=== PATIENT | male | born 1965 | race Caucasian/White ===

== ENCOUNTER 2021-01-27 17:11 | Emergency (ER) | payer BC, OTHER ==
[2021-01-27 17:30] VITALS: BP 148/87; PULSE 84; RESP 18; TEMP 98.5
[2021-01-27] MEDS ORDERED: LIDOCAINE 1% INJ 10MG/ML (20 ML MDV) SQ ONE (19:47)
[2021-01-27] MEDS ORDERED: SULFAMETH-TMP DS STARTER PACK 2 TAB BTL PO STA (20:04)
--- NOTE | 2021-01-27 20:05 | ED ---
Skin/Abscess/FB HPI - General Chief complaint: Skin/Abscess/Foreign Body Stated complaint: Shoulder abcess Time Seen by Provider: 01/27/21 19:20 Source: patient Mode of arrival: ambulatory Limitations: no limitations - History of Present Illness Initial comments: 55 year-old male patient presents to the emergency department for evaluation of abscess to the right side neck. Patient states that it has been a recurrent problem for the last 20 years. States it started worsening about a week ago. States it is swollen and tender to touch. Has had it drained in the past. Denies any fever or chills. States he was unable to get it to drain at home. Has been applying warm compresses and boil-emily. No recent antibiotics. - Related Data Previous Rx's Medication Instructions Recorded Sulfamethoxazole/Trimethoprim 1 each PO BID #20 tablet 01/27/21 [Bactrim DS 800-160 mg] Allergies Allergy/AdvReac Type Severity Reaction Status Date / Time No Known Allergies Allergy Verified 01/27/21 17:30 Review of Systems ROS Statement: Those systems with pertinent positive or pertinent negative responses have been documented in the HPI. ROS Other: All systems not noted in ROS Statement are negative. Past Medical History Past Medical History: No Reported History History of Any Multi-Drug Resistant Organisms: None Reported Past Surgical History: Unable to Obtain Past Psychological History: No Psychological Hx Reported Smoking Status: Never smoker Past Alcohol Use History: None Reported Past Drug Use History: None Reported General Exam Limitations: no limitations General appearance: alert, in no apparent distress Neck exam: Present: other (There is 3 cm x 3 cm abscess noted to the right posterior neck. No surrounding erythema. Area is tender to touch. Central fluctuance.) Respiratory exam: Present: normal lung sounds bilaterally. Absent: respiratory distress, wheezes, rales, rhonchi, stridor Cardiovascular Exam: Present: regular rate, normal rhythm, normal heart sounds. Absent: systolic murmur, diastolic murmur, rubs, gallop, clicks Neurological exam: Present: alert, oriented X3, CN II-XII intact Psychiatric exam: Present: normal affect, normal mood Skin exam: Present: warm, dry, intact, normal color. Absent: rash Course Vital Signs 01/27/21 17:28 Temperature 98.5 F Pulse Rate 84 Respiratory 18 Rate Blood Pressure 148/87 O2 Sat by Pulse 97 Oximetry Procedures - Incision & Drainage Consent Obtained: written consent Indication: Abscess Site: neck Size (cm): 3 Anesthetic Used: lidocaine 1% Amount (mLs): 3 I&D Cleaning Method: Betadine Scalpel Used: #11 I&D Drainage Obtained: Pus, Blood Culture Obtained?: Yes Complications: pain Patient Tolerated Procedure: well Medical Decision Making - Medical Decision Making 55-year-old male patient presents to the emergency department today for evaluation of abscess to the right posterior neck. Physical examination did reveal fluctuant 3 cm x 3 cm abscess with no surrounding erythema. Incision and drainage was performed. Considerable amount of pus was drained from the area. Patient does report improvement in pain after completion. This was cultured. He is started on Bactrim. Instructed to follow-up the primary care physician for recheck in 1-2 days. Return parameters were discussed in detail. He verbalizes understanding and agrees with this plan. My attending is Dr. Robledo. Disposition Clinical Impression: Abscess Disposition: HOME SELF-CARE Condition: Good Instructions (If sedation given, give patient instructions): Abscess Incision and Drainage (ED) Additional Instructions: Continue applying warm compresses. Take antibiotics as directed. Follow-up through primary care physician for recheck in 1-2 days. Return for any new, worsening, or concerning symptoms. Prescriptions: Sulfamethoxazole/Trimethoprim [Bactrim DS 800-160 mg] 1 each PO BID #20 tablet Is patient prescribed a controlled substance at d/c from ED?: No Referrals: Alex Alamo MD [Primary Care Provider] - 1-2 days Time of Disposition: 20:05
== END 2021-01-27 20:37 | disposition home or self-care (01) ==
LOC: EC 17:11
DX: L02.11 Cutaneous abscess of neck (principal)
CPT/HCPCS: 10060; 87070; 87205; 99283

== ENCOUNTER 2022-08-29 08:25 | Day surgery (SDC) | payer BC ==
[~2022-08-29 08:25] MED LIST: LACTATED RINGERS 1,000 ML IV SCH
[2022-08-29 09:28] VITALS: TEMP 97.6
[2022-08-29] MEDS ORDERED: PROPOFOL 10 MG/ML 20 ML VIAL IV ONE (09:56)
--- NOTE | 2022-08-29 10:04 | P.GSHP ---
History of Present Illness H&P Date: 08/29/22 Chief Complaint: Colon cancer screening, diverticulitis 56-year-old male here for colonoscopy. Patient states he has intermittent attacks of diverticulitis 3 times a year. He says his symptoms resolved with laxative use and not antibiotics. No recent imaging to confirm diverticulitis. No rectal bleeding or melena. No family history of colon cancer. Past Medical History Past Medical History: No Reported History History of Any Multi-Drug Resistant Organisms: None Reported Past Surgical History: No Surgical Hx Reported Past Anesthesia/Blood Transfusion Reactions: Unable to Obtain Past Psychological History: No Psychological Hx Reported Smoking Status: Current every day smoker Past Alcohol Use History: None Reported Additional Past Alcohol Use History / Comment(s): 1ppk day x 42 yrs 6-12 beers once a week usually in one evening Past Drug Use History: None Reported Medications and Allergies Home Medications Medication Instructions Recorded Confirmed Type Krill Oil 1 tab PO DAILY 08/24/22 08/24/22 History L.acidoph,Paracasei, B.lactis 1 tab PO DAILY 08/24/22 08/24/22 History [Probiotic] Multivitamins, Thera [Multivitamin 1 tab PO DAILY 08/24/22 08/24/22 History (formulary)] Vit C/E/Cuperic/Zinc/Lutein 1 tab PO DAILY 08/24/22 08/24/22 History [Preservision Lutein Softgel] Allergies Allergy/AdvReac Type Severity Reaction Status Date / Time No Known Allergies Allergy Verified 08/24/22 13:40 Surgical - Exam Vital Signs Temp Pulse Resp BP Pulse Ox 97.6 F 64 20 148/72 97 08/29/22 09:13 08/29/22 09:13 08/29/22 09:13 08/29/22 09:13 08/29/22 09:13 Physical exam: General: Well-developed, well-nourished HEENT: Normocephalic, sclerae nonicteric Abdomen: Nontender, nondistended Extremities: No edema Neuro: Alert and oriented Assessment and Plan (1) Colon cancer screening Narrative/Plan: Will proceed with colonoscopy at this time Current Visit: Yes Status: Acute Code(s): Z12.11 - ENCOUNTER FOR SCREENING FOR MALIGNANT NEOPLASM OF COLON SNOMED Code(s): 175180305
--- NOTE | 2022-08-29 10:12 | P.PCN ---
Date of Procedure: 08/29/22 Procedure(s) Performed: PREOPERATIVE DIAGNOSIS: Colon cancer screening with history of diverticulitis POSTOPERATIVE DIAGNOSIS: Diverticulosis PROCEDURE: Colonoscopy ANESTHESIA: MAC SURGEON: Percy Birch M.D. SPECIMENS: None ENDOSCOPIC PROCEDURE: The patient was placed on the endoscopy table in the left decubitus position. The Olympus colonoscope was inserted into the anus and passed under direct visualization to the base of the cecum. The appendiceal orifice was visualized. From that point the scope was slowly withdrawn inspecting all surfaces carefully. There were no neoplastic inflammatory or polypoid lesions throughout the cecum, ascending, transverse, descending, sigmoid and rectum. There was left-sided diverticulosis noted with mild inflammatory changes. Digital rectal examination was normal. The patient was taken to the recovery room in stable condition per anesthesia guidelines. RECOMMENDATIONS: Resume diet. Repeat colonoscopy in 10 years.
[2022-08-29 10:36] VITALS: BP 153/84; PULSE 67; RESP 14
== END 2022-08-29 10:53 | disposition home or self-care (01) ==
LOC: ORWHC2ENDO 08:25
PROVIDERS: ATTEND Surgery
DX: K57.30 Diverticulosis of large intestine without perforation or abscess without bleeding (principal); F17.200 Nicotine dependence, unspecified, uncomplicated; Z79.899 Other long term (current) drug therapy
CPT/HCPCS: 45378; J2704

== ENCOUNTER → 2022-09-12 | Outpatient (CLI) | payer BC ==
[2022-09-13 01:44] LABS: Basophils # (A) 0.04 X 10*3/uL (0.00-0.10); Basophils % (A) 0.5 %; Eosinophils # (A) 0.07 X 10*3/uL (0.04-0.35); Eosinophils % (A) 0.9 %; HCT 45.7 % (39.6-50.0); HGB 15.2 g/dL (13.0-17.0); Immature Grans, Automated 0.4 %; Lymphocytes # (A) 1.64 X 10*3/uL (0.90-5.00); MCH 30.6 pg (27.0-32.0); MCHC 33.3 g/dL (32.0-37.0); MCV 92.1 fL (80.0-97.0); Mean Platelet Volume 9.4 fL (9.5-12.2); Monocytes % (A) 8.5 %; NRBC Per 100 WBC 0 /100 WBCS (0.0-0.0); Neutrophils # (A) 5.72 X 10*3/uL (1.80-7.70); Neutrophils % (A) 69.7 %; Platelet Count 264 X 10*3/uL (140-440); RBC 4.96 X 10*6/uL (4.40-5.60); RDW 12.8 % (11.5-14.5)
[2022-09-14 06:00] LABS: African American GFR (CKD) 116.6 (60.0-200.0); Anion Gap 13.5 mmol/L (10.00-18.00); BUN/Creat Ratio 13.5 Ratio (12.00-20.00); Blood Urea Nitrogen 10.8 mg/dL (9.0-27.0); Calcium 9.7 mg/dL (8.7-10.3); Carbon Dioxide 24.5 mmol/L (20.0-27.5); Non-African American GFR(CKD) 100.6 (60.0-200.0); Potassium 4.7 mmol/L (3.5-5.5)
== END | disposition home or self-care (01) ==
LOC: LABPAT 14:15
PROVIDERS: ATTEND Orthopaedic Surgery
DX: Z01.818 Encounter for other preprocedural examination (principal); M16.11 Unilateral primary osteoarthritis, right hip; Z22.322 Carrier or suspected carrier of Methicillin resistant Staphylococcus aureus
CPT/HCPCS: 80048; 85025; 87070; 93005

== ENCOUNTER → 2022-09-18 | Outpatient (CLI) | payer BC ==
[2022-09-19 11:33] LABS: INR 0.91 (0.90-1.11); Prothrombin Time 10.3 sec (9.9-11.9)
== END | disposition home or self-care (01) ==
LOC: LABPAT 15:44
PROVIDERS: ATTEND Orthopaedic Surgery
DX: Z01.812 Encounter for preprocedural laboratory examination (principal); M16.11 Unilateral primary osteoarthritis, right hip; Z22.322 Carrier or suspected carrier of Methicillin resistant Staphylococcus aureus
CPT/HCPCS: 85610

== ENCOUNTER 2022-09-20 05:43 | Day surgery (SDC) | payer BC ==
[2022-09-18 15:59] VITALS: BMI 29.1
--- NOTE | 2022-09-20 02:21 | HP ---
HISTORY AND PHYSICAL DATE OF SURGERY: 09/20/2022 HISTORY OF PRESENT ILLNESS: Venkat Calhoun is a 56-year-old patient seen with progressive right hip pain. We discussed options for treatment. He elected to proceed with right total hip arthroplasty via direct anterior approach. Consent regarding the procedure was obtained. PAST MEDICAL HISTORY: Noncontributory. SURGICAL HISTORY: Noncontributory. DAILY MEDICATIONS: None. ALLERGIES: None reported. SOCIAL HISTORY: Denies tobacco use. PHYSICAL EVALUATION OF RIGHT HIP: Diffuse tenderness, limited range of motion with severe pain. Positive hip impingement sign. Straight-leg raise negative. Distal neurovascular exam intact. RADIOGRAPHS: Right hip radiographs reveal severe osteoarthritic changes. IMPRESSION: Right hip osteoarthritis. PLAN: Direct anterior right total hip arthroplasty. MMODL / IJN: [id number] /
[~2022-09-20 05:43] MED LIST changes: +ACETAMINOPHEN TAB 500 MG TAB PO PRN; -LACTATED RINGERS 1,000 ML IV SCH; +MELOXICAM 7.5 MG TAB PO PRN; +TRANEXAMIC ACID IN NACL,ISO-OS 1,000 MG in SALINE 1 100ML.BAG IVPB PRN
[2022-09-20] MEDS ORDERED: LACTATED RINGERS 1,000 ML IV SCH (06:21)
[2022-09-20] MEDS ORDERED: LIDOCAINE 1% (10MG/ML) FOR IV START INTRADERMA PRN (06:21)
[2022-09-20] MEDS ORDERED: LACTATED RINGERS 1,000 ML IV ONE ×4 (06:30→09:21)
[2022-09-20] MEDS ORDERED: ONDANSETRON 4 MG/2 ML VIAL IVP PRN ×2 (07:00→09:21)
[2022-09-20] MEDS ORDERED: HYDROmorphone 0.5 MG/0.5 ML SYRINGE IVP PRN ×3 (07:00→09:21)
[2022-09-20] MEDS ORDERED: MIDAZOLAM 2 MG/2 ML VIAL IVP ONE (07:01)
[2022-09-20] MEDS ORDERED: ROPIVACAINE 5 MG/ML 30 ML VIAL ONE (07:27)
[2022-09-20] MEDS ORDERED: ROCURONIUM 10 MG/ML (5 ML VIAL) IV ONE (07:27)
[2022-09-20] MEDS ORDERED: SUCCINYLCHOLINE CHLORIDE 200 MG/10 ML VIAL IV ONE (07:27)
[2022-09-20] MEDS ORDERED: HYDROmorphone (PF) 1 MG/ML ONE (07:27)
[2022-09-20] MEDS ORDERED: fentaNYL (PF) 50 MCG/ML 2 ML AMP ONE (07:27)
[2022-09-20] MEDS ORDERED: TRANEXAMIC ACID IN NACL,ISO-OS 1,000 MG/100 ML BAG ONE (07:27)
[2022-09-20] MEDS ORDERED: MIDAZOLAM 2 MG/2 ML VIAL ONE (07:27)
[2022-09-20] MEDS ORDERED: KETAMINE 10 MG/ML 20 ML VIAL ONE (07:27)
[2022-09-20] MEDS ORDERED: DEXAMETHASONE SOD PHOSPHATE 4 MG/ML 1 ML VIAL ONE (07:27)
[2022-09-20] MEDS ORDERED: LIDOCAINE 2% INJ 20 MG/ML (2 ML VIAL) ONE (07:27)
[2022-09-20] MEDS ORDERED: PROPOFOL 10 MG/ML 20 ML VIAL IV ONE (07:27)
[2022-09-20] MEDS ORDERED: ceFAZolin 1,000 MG in SODIUM CHLORIDE 0.9% 1,000 ML IRRIGATION ONE (08:00)
--- NOTE | 2022-09-20 09:11 | XR ---
Intraoperative/procedural fluoroscopic services were provided for total right hip arthroplasty. Hardw are appears intact with appropriate alignment. Total fluoroscopy time is 14 seconds with a total of 5 submitted images to PACS. Please see the operative note for further details.
[2022-09-20] MEDS ORDERED: HYDROmorphone 1 MG/ML 1 ML SYRINGE IVP PRN (09:21)
[2022-09-20] MEDS ORDERED: HYDROcodone/APAP 5-325MG 1 EACH TAB PO PRN (09:21)
[2022-09-20] MEDS ORDERED: HYDROcodone/APAP 7.5-325MG 1 EACH TAB PO PRN (09:21)
[2022-09-20] MEDS ORDERED: NALOXONE 0.4 MG/ML 1 ML VIAL IV PRN (09:21)
--- NOTE | 2022-09-20 09:21 | P.OP ---
Date of Procedure: 09/20/22 Preoperative Diagnosis: Right hip osteoarthritis Postoperative Diagnosis: Right hip osteoarthritis Procedure(s) Performed: Direct anterior right total hip arthroplasty Implants: 1. Depuy Corail 135 standard collar size 13 press-fit femoral stem 2. Depuy pinnacle 54 mm press-fit acetabular shell 3. Depuy pinnacle neutral polyethylene acetabular liner 36 mm ID 54 mm OD 4. Biolox delta ceramic femoral head +5 36 mm Anesthesia: GETA Surgeon: Clay Cristina Purchasing Associate #1: Karl Monsivais Estimated Blood Loss (ml): 80 Pathology: other (Femoral head) Condition: stable Disposition: PACU Indications for Procedure: 56-year-old patient seen with symptomatic right hip osteoarthritis. After treatment options were discussed, he elected to proceed with total hip arthroplasty. Operative Findings: see description of procedure Description of Procedure: The patient was taken to the operative suite. Patient underwent a general anesthetic by the department of anesthesia. Patient was then transferred to the [place] table. Patient was given preoperative IV antibiotics and TXA. Both lower extremities were placed in standard leg spars. The hip was then prepped and draped in the normal sterile orthopedic fashion. A standard anterior incision was made beginning 3 cm lateral and 1 cm distal to the ASIS extending 10 cm. Dissection was then carried down through the subcutaneous soft tissues down to the fascia overlying the tensor fascia yohana. An incision was now made through the fascia. Careful dissection was taken down exposing the tensor fascia yhoana muscle. A Cobra retractor was now placed along the medial femoral neck and a second one along the lateral femoral neck. The venous circumflex vessels were now identified, cauterized and clipped. We identified the anterior hip capsule. An incision was made through the hip capsule along the lateral border. I performed a partial anterior capsulectomy. Retractors were now placed around the femoral neck itself. A femoral neck cut was now made with a sagittal saw. It was completed with an osteotome at the lateral neck area. The femoral head was now removed without difficulty. The extremity was now rotated to 45 of external rotation. It was locked in position. Residual labrum was now debrided out. Serial reaming was performed of the acetabulum while Judd LANG assisted holding an anterior retractor for exposure. Once we reached the appropriate size and a trial was position and fit nicely. The appropriate size was now chosen opened and made available. It was introduced into the acetabulum without difficulty. The C-arm/fluoroscopy was now brought into the operative field. We made sure we had a true AP pelvic view. We now under direct C- arm/fluoroscopy introduced into the acetabular component with appropriate version and inclination. I held the cup in appropriate position well Judd ALNG used a mallet to seat the acetabular component. I noted the component now to be well seated and stable. Acetabular cup introduce her was removed. The C-arm was pulled back. An appropriate liner was introduced and clicked into position. It was felt to be stable. At this point retractors were removed. The extremity was now placed into 120 external rotation with no traction. The leg was now dropped to the ground and adducted. Appropriate retractors were now positioned along the proximal femur. We also placed our femoral look into position. Additional capsular releasing was performed to gain access to the proximal femur. We now used a box osteotome. A canal finder was now utilized. Serial broaching was now performed with the assistance of Judd LANG tapping the broaches down with a mallet while held the broach in appropriate rotation and position. This was done until we reached the appropriate size with good overall rotational stability. Appropriate calcar planing was performed. A trial head/neck was placed into position. The hip was now reduced. The C- arm/fluoroscopy was brought back into the operative field. I obtained an AP pelvis which demonstrated adequate leg length alignment and the trial components appeared adequately sized into position The C-arm/fluoroscopy was pulled back. Retractors were repositioned and the hip was dislocated. The leg was again taken down to the ground and adducted. Appropriate retractors were repositioned as well as the femoral hook. All trial components were removed. The femoral implant was opened along with the femoral head. The femoral implant was introduced on the appropriate handle into our pre-broached area. I held the component position well Judd LANG used a mallet to seat the femoral component. The femoral component was now noted to be well seated and stable.. The femoral head was introduced with good positioning and fixation noted. Retractors were now removed. The hip was now reduced. There appeared be good positioning of the hip confirmed on intraoperative fluoroscopy. Spot films were obtained to document this. A second gram of TXA was given. Bipolar cautery had been utilized intermittently through the procedure for hemostasis. The wound was irrigated copiously with pulse lavage mechanical irrigation. The fascia was repaired with Vicryl suture. The subcutaneous soft tissues were repaired in layers with Vicryl suture. The skin was approximated with pernio/Dermabond. Sterile dressings were applied. Patient was then awakened, transferred to a bed and taken to recovery in stable condition. Judd LANG assisted with the complex procedure.
[2022-09-20 09:34] VITALS: RESP 16; TEMP 96.9
[2022-09-20] MEDS ORDERED: MEPERIDINE 50 MG/ML SYRINGE IVP ONE ×3 (09:41→10:15)
[2022-09-20] MEDS ORDERED: ONDANSETRON 4 MG/2 ML VIAL IVP ONE (11:12)
[2022-09-20] MEDS ORDERED: HYDROcodone/APAP 7.5-325MG 1 EACH TAB PO ONE (11:20)
[2022-09-20 13:18] VITALS: BP 134/78; PULSE 74
--- NOTE | 2022-09-20 20:12 | P.ANPRN ---
Procedure Note - Anesthesia - Nerve Block Performed Right Chidi Single Time Out Performed: Yes Date of Procedure: 09/20/22 Procedure Start Time: 07:00 Procedure Stop Time: 07:04 Location of Patient: PreOp Indication: Acute Post-Operative Pain, Requested by Surgeon Sedation Type: Sedate with meaningful contact maintained Preparation: Sterile Prep Position: Supine Needle Types: Pajunk Needle Gauge: 21 Ultrasound used to visualize needle placement: Yes Ultrasound used to observe medication spread: Yes Blood Aspirated: No Pain Paresthesia on Injection Noted: No Resistance on Injection: Normal Image Stored and Saved: Yes Events: Uneventful and Well Tolerated (Ropivacaine 0.5% 20 mL plus dexamethasone 4 mg)
== END 2022-09-20 14:02 | disposition home health service (06) ==
LOC: OR 05:43
PROVIDERS: ATTEND Orthopaedic Surgery
DX: M16.11 Unilateral primary osteoarthritis, right hip (principal); G89.18 Other acute postprocedural pain; F17.200 Nicotine dependence, unspecified, uncomplicated; F10.20 Alcohol dependence, uncomplicated
CPT/HCPCS: 27130; 64999; 97530; 97161; 86900; 86901; 86850; 73501; J2250; J2175; J0690 ×2; J2405; J1170; 64447; 76942

== ENCOUNTER 2024-03-07 16:21 | Emergency (ER) | payer OTHER, BC ==
[2024-03-07 16:26] VITALS: PULSE 81; TEMP 98
--- NOTE | 2024-03-07 16:42 | ED ---
Wound/Laceration HPI - General Chief Complaint: Wound/Laceration Stated Complaint: L Hand Injury Time Seen by Provider: 03/07/24 16:35 Source: patient, RN notes reviewed Mode of arrival: ambulatory Limitations: no limitations - History of Present Illness Initial Comments: This is a 58-year-old male presents the emergency department chief complaint of a laceration to his left first digit. Patient stated he was at work using a band saw when his thumb was cut by the saw. He denies loss of range of motion of the thumb and denies parasthesias. He is unaware when his last tetanus vaccination was. He denies other injuries from the time of this event. No other acute complaints at this time. Denies use of blood thinners. - Related Data Home Medications Medication Instructions Recorded Confirmed Krill Oil 1 tab PO DAILY 08/24/22 09/20/22 L.acidoph,Paracasei, B.lactis 1 tab PO DAILY 08/24/22 09/20/22 [Probiotic] Multivitamins, Thera [Multivitamin 1 tab PO DAILY 08/24/22 09/20/22 (formulary)] Prevagen 1 tab PO DAILY 09/15/22 09/20/22 Previous Rx's Medication Instructions Recorded Aspirin [Adult Low Dose Aspirin EC] 81 mg PO BID #60 tab 09/20/22 HYDROcodone/APAP 7.5-325MG [[place] 1 each PO Q4HR PRN #42 tab 09/20/22 7.5] Sennosides/Docusate Sodium 1 each PO DAILY PRN #30 tablet 09/20/22 [Senna-S 8.6-50 mg Tablet] Cephalexin [Keflex] 500 mg PO Q6HR #40 cap 03/07/24 Allergies Allergy/AdvReac Type Severity Reaction Status Date / Time No Known Allergies Allergy Verified 03/07/24 16:25 Review of Systems ROS Statement: Those systems with pertinent positive or pertinent negative responses have been documented in the HPI. ROS Other: All systems not noted in ROS Statement are negative. Past Medical History Past Medical History: No Reported History History of Any Multi-Drug Resistant Organisms: None Reported Past Surgical History: Joint Replacement Past Anesthesia/Blood Transfusion Reactions: Unable to Obtain Past Psychological History: No Psychological Hx Reported Smoking Status: Never smoker General Exam Limitations: no limitations General appearance: alert, in no apparent distress Eye exam: Present: normal appearance, PERRL, EOMI. Absent: scleral icterus, conjunctival injection, periorbital swelling ENT exam: Present: normal exam, mucous membranes moist Neck exam: Present: normal inspection. Absent: tenderness, meningismus, lymphadenopathy Respiratory exam: Present: normal lung sounds bilaterally. Absent: respiratory distress, wheezes, rales, rhonchi, stridor Cardiovascular Exam: Present: regular rate, normal rhythm, normal heart sounds. Absent: systolic murmur, diastolic murmur, rubs, gallop, clicks GI/Abdominal exam: Present: soft, normal bowel sounds. Absent: distended, tenderness, guarding, rebound, rigid Left Hand Wrist exam: Present: tenderness, laceration (4 cm avulsion/laceration to first mid digit). Absent: normal inspection Neuro motor exam: Present: wrist extension intact, thumb opposition intact, thumb IP flexion intact, thumb adduction intact Vascular: Present: normal capillary refill, radial pulse (2+). Absent: vascular compromise Back exam: Present: normal inspection Neurological exam: Present: alert, oriented X3, CN II-XII intact Skin exam: Present: warm, dry, intact, normal color. Absent: rash Course Vital Signs 03/07/24 16:22 Temperature 98 F Pulse Rate 81 Respiratory 16 Rate Blood Pressure 171/77 O2 Sat by Pulse 95 Oximetry Procedures - Laceration Laceration #1 Consent Obtained: verbal consent Indication: laceration Site: hand Size (cm): 4 Description: avulsion, irregular Depth: involves muscle layer Anesthetic Used: lidocaine 1% Anesthesia Technique: local infiltration Amount (mls): 4 Pre-repair: wound explored, irrigated extensively, deep structures intact, extreme cleansing Type of Sutures: nylon Size of Sutures: 4-0 Number of Sutures: 13 Technique: simple, interrupted Complications: pain Patient Tolerated Procedure: well, no complications Medical Decision Making - Medical Decision Making Was pt. sent in by a medical professional or institution (, PA, [employer], urgent care, hospital, or retirement...) When possible be specific @ -No Did you speak to anyone other than the patient for history (EMS, parent, family, police, friend...)? What history was obtained from this source @ -No Did you review nursing and triage notes (agree or disagree)? Why? @ -I reviewed and agree with nursing and triage notes Were old charts reviewed (outside hosp., previous admission, EMS record, old EKG, old radiological studies, urgent care reports/EKG's, retirement records)? Report findings @ -No old charts were reviewed Differential Diagnosis (chest pain, altered mental status, abdominal pain women, abdominal pain men, vaginal bleeding, weakness, fever, dyspnea, syncope, headache, dizziness, GI bleed, back pain, seizure, CVA, palpatations, mental health, musculoskeletal)? @ -laceration, fracture, open wound, this list is not all inclusive EKG interpreted by me (3pts min.). @ -None X-rays interpreted by me (1pt min.). @ -Xray Of the left thumb reveals extensive soft tissue swelling with innumerable tiny hyperdense foci consistent with submillimeter metallic debris's, no associated fracture or malalignment, no focal osseous lesions. CT interpreted by me (1pt min.). @ -None done U/S interpreted by me (1pt. min.). @ -None done What testing was considered but not performed or refused? (CT, X-rays, U/S, labs)? Why? @ -None What meds were considered but not given or refused? Why? @ -None Did you discuss the management of the patient with other professionals (professionals i.e. , PA, [employer], lab, RT, psych nurse, social work lecturer, food service assistant, teacher, administrative hearing officer, therapeutic case manager)? Give summary @ -No Was smoking cessation discussed for >3mins.? @ -No Was critical care preformed (if so, how long)? @ -No Were there social determinants of health that impacted care today? How? (Homelessness, low income, unemployed, alcoholism, drug addiction, transportation, low edu. Level, literacy, decrease access to med. care, penitentiary, rehab)? @ -No Was there de-escalation of care discussed even if they declined (Discuss DNR or withdrawal of care, Hospice)? DNR status @ -No What co-morbidities impacted this encounter? (DM, HTN, Smoking, COPD, CAD, Cancer, CVA, ARF, Chemo, Hep., AIDS, mental health diagnosis, sleep apnea, morbid obesity)? @ -None Was patient admitted / discharged? Hospital course, mention meds given and route, prescriptions, significant lab abnormalities, going to OR and other pertinent info. @ -Discharge. 58-year-old male with laceration. On examination patient has a 4 cm avulsion deep injury through the muscle of the left finger. Patient is neurovascularly intact with full sensation and mobility. He will be evaluated via x-ray. He is also provided with a dose of antibiotics and tetanus. Area was numbed with 1% lidocaine and thoroughly cleansed with sterile water and Betadine. There were no obvious debris was removed. 13 simple interrupted sutures were placed with 4-0 nylon. Have patient follow-up with his primary care provider and report back to the emergency department in 10 to 12 days for suture removal. Gauze applied over the finger and instruct patient to keep gauze in place for 24 hours. Prescription for antibiotics sent. All questions answered at bedside and strict return parameters discussed was verbalized understanding. Case discussed with Dr. Hutchinson. Undiagnosed new problem with uncertain prognosis? @ -No Drug Therapy requiring intensive monitoring for toxicity (Heparin, Nitro, Insulin, Cardizem)? @ -No Were any procedures done? @ -wound irrigation, suture repair Diagnosis/symptom? @ -laceration Acute, or Chronic, or Acute on Chronic? @ -acute Uncomplicated (without systemic symptoms) or Complicated (systemic symptoms)? @ -uncomplicated Side effects of treatment? @ -No Exacerbation, Progression, or Severe Exacerbation? @ -No Poses a threat to life or bodily function? How? (Chest pain, [place], [place], pneumonia, PE, COPD, DKA, ARF, appy, cholecystitis, CVA, Diverticulitis, Homicidal, Suicidal, threat to staff... and all critical care pts) @ -No Disposition Clinical Impression: Laceration Disposition: HOME SELF-CARE Condition: Good Instructions (If sedation given, give patient instructions): Care For Your Stitches (DC) Additional Instructions: Return to the emergency department if symptoms worsen or not improved. Complete full course of antibiotics as prescribed. Recommend follow-up with your primary care or return to the emergency department in 10 to 12 days for suture removal. Prescriptions: Cephalexin [Keflex] 500 mg PO Q6HR #40 cap Is patient prescribed a controlled substance at d/c from ED?: No Referrals: Alex Alamo MD [Primary Care Provider] - 1-2 days Time of Disposition: 18:12
[2024-03-07] MEDS: LIDOCAINE 1% INJ 10MG/ML (20 ML MDV) SQ ONE (17:06)
--- NOTE | 2024-03-07 17:18 | XR ---
PROCEDURE: XR finger LT - 3V DATE AND TIME: 03/07/2024 4:52 PM CLINICAL INDICATION: PHH; first digit laceration TECHNIQUE: Department protocol COMPARISON: None FINDINGS / IMPRESSION: 3 views of the thumb were obtained. There is extensive soft tissue swelling centered at the IP articulation, with innumerable tiny hyperd ense foci consistent with scattered submillimeter metallic debris. The soft tissue swelling is hetero geneous the radiodense, with areas of low-attenuation high attenuation, with involvement of the IP alisia int. There is no associated acute fracture/malalignment. No focal osseous lesions.
[2024-03-07] MEDS: DIPH,PERTUS(ACELL)TETVAC-LF 0.5 ML VIAL IM ONE (18:06)
[2024-03-07] MEDS: ceFAZolin 1,000 MG VIAL (IM USE) IM STA (18:07)
[2024-03-07 18:30] VITALS: BP 155/81; RESP 18
== END 2024-03-07 18:26 | disposition home or self-care (01) ==
LOC: EC 16:21
DX: S61.412A Laceration without foreign body of left hand, initial encounter (principal); Z23 Encounter for immunization; W31.2XXA Contact with powered woodworking and forming machines, initial encounter; Y99.0 Civilian activity done for income or pay
CPT/HCPCS: 73140; 90715; 99283; 90471; 96372; 12002; J0690; J2001

== ENCOUNTER 2024-03-07 22:19 | Emergency (ER) | payer BC, OTHER ==
[2024-03-07 22:24] VITALS: TEMP 98.4
--- NOTE | 2024-03-07 22:56 | ED ---
General Adult HPI - General Chief complaint: Wound/Laceration Stated complaint: L Thumb Laceration-return visit Time Seen by Provider: 03/07/24 22:28 Source: patient Mode of arrival: ambulatory Limitations: no limitations - History of Present Illness Initial comments: Dictation was produced using [employer]end[employer] dictation software. please excuse any grammatical, word or spelling errors. Chief Complaint: 58-year-old male with bleeding laceration History of Present Illness: Patient is a 58-year-old male who is just in the emergency department hours ago after cutting his left thumb with a band saw. Laceration was repaired using sutures. Patient got home noticed that his dressing was saturated with blood. Patient came back to the ER The ROS documented in this emergency department record has been reviewed and confirmed by me. Those systems with pertinent positive or negative responses have been documented in the HPI. All other systems are other negative and/or noncontributory. - Related Data Home Medications Medication Instructions Recorded Confirmed Krill Oil 1 tab PO DAILY 08/24/22 09/20/22 L.acidoph,Paracasei, B.lactis 1 tab PO DAILY 08/24/22 09/20/22 [Probiotic] Multivitamins, Thera [Multivitamin 1 tab PO DAILY 08/24/22 09/20/22 (formulary)] Prevagen 1 tab PO DAILY 09/15/22 09/20/22 Previous Rx's Medication Instructions Recorded Aspirin [Adult Low Dose Aspirin EC] 81 mg PO BID #60 tab 09/20/22 HYDROcodone/APAP 7.5-325MG [[place] 1 each PO Q4HR PRN #42 tab 09/20/22 7.5] Sennosides/Docusate Sodium 1 each PO DAILY PRN #30 tablet 09/20/22 [Senna-S 8.6-50 mg Tablet] Cephalexin [Keflex] 500 mg PO Q6HR #40 cap 03/07/24 Allergies Allergy/AdvReac Type Severity Reaction Status Date / Time No Known Allergies Allergy Verified 03/07/24 22:24 Review of Systems ROS Statement: Those systems with pertinent positive or pertinent negative responses have been documented in the HPI. ROS Other: All systems not noted in ROS Statement are negative. Past Medical History Past Medical History: No Reported History History of Any Multi-Drug Resistant Organisms: None Reported Past Surgical History: Joint Replacement Additional Past Surgical History / Comment(s): rt hip Past Anesthesia/Blood Transfusion Reactions: Unable to Obtain Past Psychological History: No Psychological Hx Reported Smoking Status: Never smoker Past Alcohol Use History: Occasional Past Drug Use History: None Reported General Exam - General Exam Comments Initial Comments: General: Well-appearing, nontoxic, no acute distress. Head: Normocephalic, atraumatic Eyes: PERRLA, EOMI ENT: Airway patent Chest: Nonlabored breathing Skin: No visual rash, normal skin tone Neuro: Alert and oriented 3 Musculoskeletal: No gross abnormalities Left hand: There was a slight arterial bleeder in the middle portion of the laceration. Limitations: no limitations Course Vital Signs 03/07/24 22:22 Temperature 98.4 F Pulse Rate 93 Respiratory 20 Rate Blood Pressure 165/89 O2 Sat by Pulse 99 Oximetry Medical Decision Making - Medical Decision Making Was pt. sent in by a medical professional or institution (, PA, HAT MEASURER, urgent care, hospital, or [facility]...) When possible be specific @ -No Did you speak to anyone other than the patient for history (EMS, parent, family, police, friend...)? What history was obtained from this source @ -No Did you review nursing and triage notes (agree or disagree)? Why? @ -I reviewed and agree with nursing and triage notes Were old charts reviewed (outside hosp., previous admission, EMS record, old EKG, old radiological studies, urgent care reports/EKG's, [facility] records)? Report findings @ -No old charts were reviewed Differential Diagnosis (chest pain, altered mental status, abdominal pain women, abdominal pain men, vaginal bleeding, musculoskeletal, weakness, fever, dyspnea, syncope, headache, dizziness, GI bleed, back pain, seizure, CVA, palpatations, mental health)? @ -Not applicable EKG interpreted by me (3pts min.). @ -None done X-rays interpreted by me (1pt min.). @ -None done CT interpreted by me (1pt min.). @ -None done U/S interpreted by me (1pt. min.). @ -None done What testing was considered but not performed or refused? (CT, X-rays, U/S, labs)? Why? @ -None What meds were considered but not given or refused? Why? @ -None Was smoking cessation discussed for >3mins.? @ -No Were there social determinants of health that impacted care today? How? (Homelessness, low income, unemployed, alcoholism, drug addiction, transpo rtation, low edu. Level, literacy, decrease access to med. care, fdc, rehab)? @ -No Was there de-escalation of care discussed even if they declined (Discuss DNR or withdrawal of care, Hospice)? DNR status @ -No What co-morbidities impacted this encounter? (DM, HTN, Smoking, COPD, CAD, Cancer, CVA, ARF, Chemo, Hep., AIDS, mental health diagnosis, sleep apnea, morbid obesity)? @ -None Was patient admitted / discharged? Hospital course, mention meds given and route, prescriptions, significant lab abnormalities, going to OR and other pertinent info. @ -58-year-old male presents to the ER after having persistent bleeding after laceration repair. Vital signs stable. Dressing was removed there was a small arterial bleeder. Horizontal mattress suture was placed across the bleeder. Wound was dressed and topped with Gelfoam. Dressing was applied and bleeding was controlled. Did you discuss the management of the patient with other professionals (professionals i.e. , PA, HAT MEASURER, lab, RT, psych nurse, social studies department chair, provider relations coordinator, teacher, commercial credit officer, director case)? Give summary @ -No Was critical care preformed (if so, how long)? @ -No Undiagnosed new problem with uncertain prognosis? @ -No Drug Therapy requiring intensive monitoring for toxicity (Heparin, Nitro, Insulin, Cardizem)? @ -No Were any procedures done? @ -No Diagnosis/symptom? Acute, or Chronic, or Acute on Chronic? Uncomplicated (without systemic symptoms) or Complicated (systemic symptoms)? @ -Bleeding laceration Side effects of treatment? @ -No Exacerbation, Progression, or Severe Exacerbation? @ -No Poses a threat to life or bodily function? How? (Chest pain, [place], [place], pneumonia, PE, COPD, DKA, ARF, appy, cholecystitis, CVA, Diverticulitis, Homicidal, Suicidal, threat to staff... and all critical care pts) @ -No Disposition Clinical Impression: Laceration Disposition: HOME SELF-CARE Condition: Good Instructions (If sedation given, give patient instructions): Laceration (ED) Is patient prescribed a controlled substance at d/c from ED?: No Referrals: Alex Alamo MD [Primary Care Provider] - 1-2 days Time of Disposition: 22:56
[2024-03-07 23:31] VITALS: BP 158/75; PULSE 85; RESP 16
== END 2024-03-07 23:23 | disposition home or self-care (01) ==
LOC: EC 22:19
DX: S61.012A Laceration without foreign body of left thumb without damage to nail, initial encounter (principal); W31.2XXA Contact with powered woodworking and forming machines, initial encounter
CPT/HCPCS: 99282